=== PATIENT | male | born 1965 | race African-American/Black ===

== ENCOUNTER 2017-08-03 07:24 | Day surgery (SDC) | payer OTHER ==
[2017-08-03] VITALS (8 sets, daily range): BP systolic 107–141; BP diastolic 68–85
[~2017-08-03] VITALS: Ht 185.4 cm; Wt 114.3 kg
[2017-08-03] MEDS ORDERED: LISINOPRIL20 MG ORAL (08:06)
[2017-08-03] MEDS ORDERED: Tylenol PM PO (08:08)
--- NOTE | 2017-08-03 09:24 | Short Stay Surgery H&P ---
History of Present Illness History of Present Illness Chief Complaint screening colon HPI En [place] is a 51 year old male who was admitted on for Colon Screening Patient History Allergies: Coded Allergies: NICKEL (Verified Allergy, Intermediate, RASH, 08/03/17) PAST MEDICAL HISTORY: (1) HTN (hypertension) Medication History Scheduled Lisinopril (Lisinopril*), 20 MG ORAL DAILY, (Reported) Scheduled PRN [Tylenol PM], 1 TAB PO PRN PRN for Insomnia, (Reported) Review of Systems Cardiovascular: Reports: no symptoms Respiratory: Reports: no symptoms Skeletal: Reports: no symptoms Gastrointestinal: Reports: no symptoms Genitourinary: Reports: no symptoms Neurologic: Reports: no symptoms Endocrine: Reports: no symptoms Hematologic: Reports: no symptoms Physical Exam Vital Signs Last Vital Signs Date Time Temp Pulse Resp B/P (MAP) Pulse Ox O2 Delivery O2 Flow Rate FiO2 08/03/17 08:14 98.0 84 18 141/84 98 Room Air 98.0 Skin: normal HENT: normal Heart: normal Lungs: normal Abdomen: normal Extremities: normal Plan Plan of Care colonoscopy Attestation Are the patient's medical conditions optimized for surgery? Attestation Response: yes DARRELL DOTSON Aug 03, 2017 09:24
[2017-08-03] MEDS ORDERED: LR 1000ml ONE (09:30)
[2017-08-03] MEDS ORDERED: Propofol 200mg/20ml IV ONE (09:30)
[2017-08-03] MEDS ORDERED: fentaNYL 100 mcg/2 mL IV ONE (09:30)
[2017-08-03] MEDS ORDERED: Midazolam 2mg/2ml Inj ONE (09:30)
[2017-08-03] MEDS ORDERED: LR 1000ml 1,000 ML IVLG SCH (09:35)
--- NOTE | 2017-08-03 09:37 | 48 Hour Post Anesthesia Eval ---
Post Anesthesia Evaluation Procedure: colo Date of Evaluation: Aug 05, 2017 Time of Evaluation: 09:36 Blood Pressure Systolic: 139 0: 78 Pulse Rate: 78 Respiratory Rate: 18 Temperature (Fahrenheit): 97 O2 Sat by Pulse Oximetry: 99 Airway: patent Nausea: No Vomiting: No Pain Intensity: 0 Hydration Status: adequate Mental Status/LOC: patient returned to baseline Post-Anesthesia Complications: none Follow-up care needed: ready to discharge Morteza Martins M.D. Aug 03, 2017 09:37
[2017-08-03] MEDS ORDERED: Hydromorphone 0.5mg/0.5ml inj IVP PRN (09:45)
--- NOTE | 2017-08-03 09:59 | Endoscopy Procedure Note ---
Endoscopy Procedure Note General Indication for Procedure: screening Procedures Performed: colonoscopy Operative Findings/Diagnosis: one polyp Specimen: yes Pt Tolerated Procedure Well: Yes Estimated Blood Loss: none Anesthesia Anesthesiologist: jimmy Anesthesia: MAC Inserted Devices Implant(s) used?: No Quality Quality of Bowel Preparation: Good Did scope reach the cecum?: Yes Was there any complications?: No GI Core Measures 50 yrs or older w/o bx or poly: No 10yrs. F/U not recommended: Yes If not recommended, why?: Above average risk 10 yrs. F/U needed: Yes 18 years or older w/prev. colo: No DARRELL DOTSON Aug 03, 2017 09:59
--- NOTE | 2017-08-03 12:30 | Procedure Note ---
DATE OF PROCEDURE: 08/03/2017 SURGEON: Ian Abdullahi M.D. ANESTHESIOLOGIST: Dr. Martins. PROCEDURE: Colonoscopy with biopsy. ANESTHESIA: Per Dr. Martins. INSTRUMENT: Olympus adult flexible colonoscope. INDICATION: Screening colonoscopy. The procedure, risks, benefits, and possible consequences, including hemorrhage, aspiration, perforation and infection, and alternative treatments, were explained to the patient/legal guardian by Dr. Ian Abdullahi and the patient/legal guardian understood and accepted these risks. DESCRIPTION OF PROCEDURE: After informed consent was obtained and the patient was adequately sedated, first rectal exam was performed which was normal. Then, the scope was advanced from the rectum into the cecum documented by appendiceal orifice, ileocecal valve, and right upper quadrant palpation. Quality of prep was very good. The patient had one diminutive polyp in the cecum, which was removed with cold biopsy forceps technique. The rest of the examination was grossly within normal limits. There was no obvious mass, diverticulosis, or any other pathology seen. The patient tolerated the procedure very well without any complication. SUMMARY OF FINDINGS: Colonic polyp, removed from the cecum using biopsy forceps technique, otherwise the rest of the exam was within normal limit. RECOMMENDATIONS: 1. Repeat colonoscopy in 5 years. 2. Follow biopsy results. Ian Abdullahi M.D. DR: Moriah JOB#: [id number] CC:
--- NOTE | 2017-08-05 17:47 | Cardiology Report ---
APPROVED REPORT EKG Measurement Heart [id number] NH [id number] [id number] Normal sinus rhythm Normal ECG
== END 2017-08-03 11:20 | disposition home or self-care (01) ==
LOC: GAS 07:24 → EDBD 09:15 → GAS 11:20
DX: Z12.11 Encounter for screening for malignant neoplasm of colon (principal); K63.5 Polyp of colon; I10 Essential (primary) hypertension
CPT/HCPCS: 45380; 93005; J2250; J2704; J3010; J7120; 94003; 94150